=== PATIENT | male | born 1980 | race Caucasian/White ===

== ENCOUNTER 2016-04-29 15:43 | Outpatient (CLI) | payer BC ==
--- NOTE | 2016-04-29 21:58 | RAD ---
CHEST TWO VIEWS 04/29/16 PA and lateral views are submitted. The heart is normal in size and the lungs are clear. No infiltra te or effusion was seen. A few small calcified granulomas were noted in the lungs. There is no vascu lar congestion or edema. The trachea is midline. IMPRESSION: No acute finding. POS: HOME
== END 2016-04-29 15:44 | disposition home or self-care (01) ==
LOC: BURRAD 15:43
PROVIDERS: ATTEND Physician Assistant
DX: R07.9 Chest pain, unspecified (principal)
CPT/HCPCS: 71020